=== PATIENT | female | born 1975 | race Caucasian/White ===

== ENCOUNTER → 2020-09-14 | Outpatient (CLI) | payer OTHER ==
[2020-09-14 16:42] LABS: HEMOGLOBIN 13.1 gm/dl (12.3-15.3); RED BLOOD COUNT 4.42 M/UL (4.00-5.10); WHITE BLOOD COUNT 10.9 K/UL (4.5-11.0)
[2020-09-14 17:08] LABS: BUN/CREATININE RATIO 14 (0-10)
[2020-09-16 09:15] LABS: HBSAG SCREEN Negative (Negative); HEP B CORE AB, TOT Negative (Negative)
[2020-09-16 10:15] LABS: HCV AB <0.1 (0.0-0.9)
[2020-09-16 11:15] LABS: RHEUMATOID ARTHRITIS FACTOR <10.0 IU/mL (0.0-13.9)
[2020-09-17 18:09] LABS: QUANTIFERON MITOGEN VALUE >10.00 IU/mL (.); QUANTIFERON NIL VALUE 0.11 IU/mL (.); QUANTIFERON TB1 AG VALUE 0.03 IU/mL (.); QUANTIFERON TB2 AG VALUE 0.02 IU/mL (.); QUANTIFERON-TB GOLD PLUS Negative (Negative)
[2020-09-18 00:09] LABS: CCP ANTIBODIES IGG/IGA 1 units (0-19)
== END ==
LOC: LAB 15:23
PROVIDERS: Nurse Practitioner Family
DX: Z11.59 Encounter for screening for other viral diseases (principal); M25.50 Pain in unspecified joint; R53.83 Other fatigue; M79.10 Myalgia, unspecified site; R76.8 Other specified abnormal immunological findings in serum; Z79.899 Other long term (current) drug therapy
CPT/HCPCS: 80053; 81001; 82550; 82570; 82728; 83520; 84156; 85025; 85652; 86140; 86200; 86431; 86704; 86803; 87340